=== PATIENT | female | born 1985 | race Two or more races ===

== ENCOUNTER 2021-01-25 10:15 | Inpatient (IN) | payer OTHER ==
[~2021-01-25] VITALS: Ht 160 cm; Wt 3.2 kg
[2021-01-25] MEDS ORDERED: PRENATABS RX T1 EACH PO (11:44)
== END 2021-02-04 16:37 | disposition home or self-care (01) | DRG 788 ==
LOC: LDR 02-01 10:00 → O/R 02-01 10:22 → SURG-SUITE 02-01 10:22
PROVIDERS: ADMIT Obstetrics & Gynecology Maternal & Fetal Medicine; ATTEND Obstetrics & Gynecology Maternal & Fetal Medicine
PROC: 4A1HXFZ Monitoring of Products of Conception, Cardiac Rhythm, External Approach (ICD-10-PCS; 2021-02-01)
PROC: 10D00Z1 Extraction of Products of Conception, Low, Open Approach (ICD-10-PCS; principal; 2021-02-01 10:00)
DX: O34.211 Maternal care for low transverse scar from previous cesarean delivery (principal); Z37.0 Single live birth; Z3A.39 39 weeks gestation of pregnancy